=== PATIENT | male | born 1990 | race Caucasian/White ===

== ENCOUNTER 2018-08-06 20:53 | Emergency (ER) | payer SELFPAY ==
[~2018-08-06] VITALS: Wt 77.5 kg
[2018-08-06 21:21] VITALS: BP 144/86
[2018-08-06] MEDS ORDERED: IBUPROFEN 800 MG TAB PO ONE (22:00)
[2018-08-06] MEDS ORDERED: METHOCARBAMOL 750 MG TAB PO ONE (22:00)
[2018-08-06] MEDS ORDERED: METH750T93 PO (23:52)
[2018-08-06] MEDS ORDERED: ACET-141 PO (23:52)
[2018-08-06] MEDS ORDERED: IBUP-1561 PO (23:52)
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
[2018-08-07 01:11] VITALS: PULSE 90; RESP 20
== END 2018-08-07 00:30 | disposition home or self-care (01) ==
LOC: FTE 20:53
DX: M25.512 Pain in left shoulder (principal)
CPT/HCPCS: 99283